=== PATIENT | female | born 1970 | race Caucasian/White ===

== ENCOUNTER 2019-08-04 02:25 | Emergency (ER) | payer OTHER ==
[~2019-08-04] VITALS: Ht 152.4 cm; Wt 63.5 kg
[2019-08-04 02:30] VITALS: BP 123/61
[2019-08-04] MEDS ORDERED: MELA10CA PO (02:44)
[2019-08-04] MEDS ORDERED: birth control (02:44)
[2019-08-04] MEDS ORDERED: DIPH25CA58 PO (02:44)
[2019-08-04] MEDS ORDERED: [UNRECOGNIZED DRUG - OTHER] OD (02:54)
--- NOTE | 2019-08-04 02:55 | PHYS DOC ---
Past History Past Medical History: Other Additional Past Medical Histor: iritis, autoimmune disorder, arthritis Past Surgical History: Smoking: Non-smoker Alcohol Use: None Drug Use: None Adult General Chief Complaint Chief Complaint: EYE PROBLEMS HPI HPI Patient is a 49-year-old female presents complaining of right eye discharge. No change in vision. Redness is present. No photophobia. Not like her previous episodes of iritis. No trauma. Patient has been dealing with upper respiratory infection symptoms. Symptoms are moderate. There was mattering crusting her eyes shut as she woke up this morning.[] Review of Systems Review of Systems Constitutional: Denies fever or chills [] Eyes: See history of present illness[] HENT: Denies nasal congestion or sore throat [] Respiratory: Denies cough or shortness of breath [] Cardiovascular: No chest pain or palpitations[] GI: Denies abdominal pain, nausea, vomiting, bloody stools or diarrhea [] : Denies dysuria or hematuria [] Musculoskeletal: Denies back pain or joint pain [] Integument: Denies rash or skin lesions [] Neurologic: Denies headache, focal weakness or sensory changes [] Endocrine: Denies polyuria or polydipsia [] All other systems were reviewed and found to be within normal limits, except as documented in this note. Allergies Allergies Allergies Coded Allergies Type Severity Reaction Last Updated Verified No Known Drug Allergies 08/04/19 No Physical Exam Physical Exam Constitutional: Well developed, well nourished, no acute distress, non-toxic appearance. [] HENT: Normocephalic, atraumatic, bilateral external ears normal, oropharynx moist, no oral exudates, nose normal. [] Eyes: PERRLA, EOMI, right eye conjunctival injection with limbic sparing, anterior chamber is clear, normal fundus bilaterally, yellow tinged watery discharge from right eye.. [] Neck: Normal range of motion, no tenderness, supple, no stridor. [] Cardiovascular:Heart rate regular rhythm, no murmur [] Lungs & Thorax: Bilateral breath sounds clear to auscultation [] Abdomen: Not examined. [] Skin: Warm, dry, no erythema, no rash. [] Back: No tenderness, no CVA tenderness. [] Extremities: No tenderness, no cyanosis, no clubbing, ROM intact, no edema. [] Neurologic: Alert and oriented X 3, normal motor function, normal sensory function, no focal deficits noted. [] Psychologic: Affect normal, judgement normal, mood normal. [] EKG EKG [] Radiology/Procedures Radiology/Procedures [] Course & Med Decision Making Course & Med Decision Making Pertinent Labs and Imaging studies reviewed. (See chart for details) ED course: Patient arrived, was placed in bed, and tolerated exam well. Antibiotic eye ointment was administered. Findings and plan were discussed with the patient who voiced understanding. All questions were answered. She was discharged in improved condition. Medical decision making: Patient with right-sided conjunctivitis. No evidence of narrow angle closure glaucoma, iritis, uveitis, foreign body, central retinal artery or vein occlusion. No post-septal cellulitis.[] Dragon Disclaimer Dragon Disclaimer This electronic medical record was generated, in whole or in part, using a voice recognition dictation system. Departure Departure: Impression: Primary Impression: Conjunctivitis, right eye Disposition: HOME, SELF-CARE Condition: IMPROVED Referrals: PCP,UNKNOWN (PCP) Patient Instructions: Conjunctivitis (Viral and Bacterial) Additional Instructions: Follow-up with your regular doctor in 2 days. Apply warm compresses to the eye for 15 minutes at a time, at least 4 times a day. Return to the ER if worsening pain, range in vision, or any other concerns. Scripts [erythromycin oph oin] No Conflict Check 1 BENJI OD Q4HRS W/A for conjunctivitis for 5 Days, #3.5 GM Prov: SHADY KING DO 08/04/19 Problem Qualifiers Primary Impression: Conjunctivitis, right eye Conjunctivitis type: acute Acute conjunctivitis type: unspecified Qualified Codes: H10.31 - Unspecified acute conjunctivitis, right eye SHADY KING DO Aug 04, 2019 02:54
[2019-08-04] MEDS ORDERED: ERYTHROMYCIN 0.5% OPHTH OINTMENT 1GM TUBE. OD ONE (03:00)
== END 2019-08-04 03:02 | disposition home or self-care (01) ==
LOC: ER 02:25
DX: H10.31 Unspecified acute conjunctivitis, right eye (principal); M19.90 Unspecified osteoarthritis, unspecified site
CPT/HCPCS: 99283